=== PATIENT | male | born 1975 | race Asian ===

== ENCOUNTER 2018-03-18 07:29 | Emergency (ER) | END 2018-03-19 10:28 ==

== ENCOUNTER 2018-10-11 14:22 | Emergency (ER) | payer SELFPAY ==
[~2018-10-11] VITALS: Ht 167.6 cm; Wt 77.3 kg
[2018-10-11 14:27] VITALS: Ht 167.6 cm; Wt 77.3 kg
[2018-10-11] MEDS ORDERED: OLANZAPINE (ODT) 5 MG TAB ODT STA (19:11)
--- NOTE | 2018-10-11 19:11 | ERD ---
ER Documentation Chief Complaint Chief Complaint BIB RESCUE/[employer] AFTER HALLUCINATING AND WALKING INTO TRAFFIC. METH/ETOH HPI 43-year-old male brought in by ambulance and [employer] for hallucinations and bizarre behavior. He was reportedly walking into traffic. He was placed on a 5150 by police prior to arrival. Patient states that he did methamphetamines 3 days ago. He is apologetic regarding this. Otherwise he is endorsing auditory and visual hallucinations and is difficult to understand as he does not make sense. ROS All systems reviewed and are negative except as per history of present illness. Medications Home Meds Unable to Obtain Active Prescriptions or Reported Meds Allergies Allergies: Coded Allergies: No Known Allergy (Unverified , 03/18/18) PMhx/Soc Medical and Surgical Hx: pt denies Medical Hx, pt denies Surgical Hx Hx Miscellaneous Medical Probl: Yes (Lymphadenopathy, unknown reason) Hx Alcohol Use: Yes Hx Substance Use: Yes (METH) Hx Tobacco Use: No Smoking Status: Current some day smoker FmHx Family History: No diabetes Physical Exam Vitals Vital Signs Date Temp Pulse Resp B/P (MAP) Pulse Ox O2 O2 Flow FiO2 Time Delivery Rate 10/11/18 98.2 110 18 127/74 97 14:27 (91) Physical Exam Const: No acute distress Head: Atraumatic Eyes: Normal Conjunctiva ENT: Normal External Ears, Nose and Mouth. Neck: Full range of motion. No meningismus. Left cervical lymph node enlargement, chronic per patient Resp: Clear to auscultation bilaterally Cardio: Regular rate and rhythm, no murmurs Abd: Soft, non tender, non distended. Normal bowel sounds Skin: No petechiae or rashes Back: No midline or flank tenderness Ext: No cyanosis, or edema Neur: Awake and alert, normal speech, moving all extremities Psych: Anxious, paranoid, delusional. Auditory and visual hallucinations. Result Diagram: 10/11/18 1448 10/11/18 1448 Results 24 hrs Laboratory Tests Test 10/11/18 14:48 10/11/18 16:02 White Blood Count 11.0 10^3/ul Red Blood Count 5.03 10^6/ul Hemoglobin 14.5 g/dl Hematocrit 43.5 % Mean Corpuscular Volume 86.5 fl Mean Corpuscular Hemoglobin 28.8 pg Mean Corpuscular Hemoglobin Concent 33.3 g/dl Red Cell Distribution Width 14.7 % Platelet Count 320 10^3/UL Mean Platelet Volume 9.3 fl Immature Granulocytes % 0.300 % Neutrophils % 67.3 % Lymphocytes % 19.5 % Monocytes % 8.6 % Eosinophils % 3.6 % Basophils % 0.7 % Nucleated Red Blood Cells % 0.0 /100WBC Immature Granulocytes # 0.030 10^3/ul Neutrophils # 7.4 10^3/ul Lymphocytes # 2.1 10^3/ul Monocytes # 0.9 10^3/ul Eosinophils # 0.4 10^3/ul Basophils # 0.1 10^3/ul Nucleated Red Blood Cells # 0.0 10^3/ul Sodium Level 143 mmol/L Potassium Level 3.5 mmol/L Chloride Level 104 mmol/L Carbon Dioxide Level 21 mmol/L Anion Gap 18 Blood Urea Nitrogen 19 mg/dl Creatinine 0.82 mg/dl Est Glomerular Filtrat Rate mL/min > 60 mL/min Glucose Level 125 mg/dl Calcium Level 9.8 mg/dl Total Bilirubin 1.5 mg/dl Direct Bilirubin 0.00 mg/dl Indirect Bilirubin 1.5 mg/dl Aspartate Amino Transf (AST/SGOT) 34 IU/L Alanine Aminotransferase (ALT/SGPT) 23 IU/L Alkaline Phosphatase 57 IU/L Total Protein 8.8 g/dl Albumin 4.9 g/dl Globulin 3.90 g/dl Albumin/Globulin Ratio 1.25 Salicylates Level < 1.0 mg/dl Acetaminophen Level < 10.0 ug/ml Ethyl Alcohol Level < 10.0 mg/dl Urine Color YELLOW Urine Clarity CLOUDY Urine pH 5.0 Urine Specific [place] 1.029 Urine Ketones NEGATIVE mg/dL Urine Nitrite NEGATIVE mg/dL Urine Bilirubin NEGATIVE mg/dL Urine Urobilinogen NEGATIVE mg/dL Urine Leukocyte Esterase NEGATIVE Ragini/ul Urine Microscopic RBC 2 /HPF Urine Microscopic WBC 15 /HPF Urine Amorphous Crystals FEW /HPF Urine Bacteria FEW /HPF Urine Hyaline Casts FEW /HPF Urine Mucus FEW /HPF Urine Hemoglobin 1+ mg/dL Urine Glucose NEGATIVE mg/dL Urine Total Protein 1+ mg/dl Urine Opiates Screen NEGATIVE Urine Barbiturates NEGATIVE Urine Amphetamines Screen POSITIVE Urine Benzodiazepines Screen NEGATIVE Urine Cocaine Screen NEGATIVE Urine Cannabinoids NEGATIVE Procedures/MDM EMERGENT LABS AND DIAGNOSTIC STUDIES: Lab Results above were reviewed and interpreted by me. CBC: no anemia or evidence of infection CMP: No evidence of clinically significant electrolyte abnormality, acidosis, renal failure, hypoglycemia, liver disease, or biliary obstruction UA: no evidence of infection Drug screen negative EtOH negative, no evidence of intoxication Initial Nursing notes reviewed. Previous Medical Records requested via the Electronic Health Record. EMERGENCY DEPARTMENT COURSE / MEDICAL DECISION MAKING: Patient is presenting with evidence of psychosis, possibly drug-induced. [place] based on his medical history in the medical record, patient does likely have an underlying mental health disorder. Patient's condition is unstable and he is going to require involuntary hospitalization for stabilization. I did give him Ativan while he was here. With regard to his cervical lymphadenopathy, this is chronic and the patient does not want any further work-up. He states that he wa s at another hospital prior to this and refused biopsy. From my standpoint, patient is medically cleared for psychiatric hospitalization. At time of signout, pending transfer to psychiatric facility, still not accepted. Care of patient will be transferred to the oncoming ED physician. Departure Diagnosis: Primary Impression: Psychosis Psychosis type: unspecified psychosis type Qualified Codes: F29 - Unspecified psychosis not due to a substance or known physiological condition Condition: LUIS Blanca MD Oct 11, 2018 19:08
[2018-10-11] MEDS ORDERED: LORAZEPAM 1 MG TAB PO ONE (19:30)
[2018-10-11 23:13] VITALS: BP 97/55; PULSE 63; RESP 18
== END 2018-10-11 23:24 ==
LOC: E/R 14:22
DX: F29 Unspecified psychosis not due to a substance or known physiological condition (principal); F17.210 Nicotine dependence, cigarettes, uncomplicated
CPT/HCPCS: 36415; 80053; 80307; 81001; 85025